=== PATIENT | male | born 1935 | race Caucasian/White ===

== ENCOUNTER 2018-02-07 21:27 | Emergency (ER) | payer MEDICARE ==
[2018-02-07] MEDS ORDERED: SODIUM CHLORIDE 0.9% 1,000 ML IV STA ×2 (21:51)
[2018-02-07] MEDS ORDERED: KETOROLAC 30 MG/ML 1 ML VIAL IVP STA (21:51)
--- NOTE | 2018-02-07 21:58 | ED ---
Abdominal Pain HPI - General Chief Complaint: Abdominal Pain Stated Complaint: Abd pain Time Seen by Provider: 02/07/18 21:41 Source: patient, family, RN notes reviewed Mode of arrival: ambulatory Limitations: no limitations - History of Present Illness Initial Comments: This is a 82-year-old male who presents with complaints of the onset of nausea and vomiting around 6 PM tonight. This is eating after crab that had been in his refrigerator for about 3 days. He complains of lower abdominal pain is 9/ 10 severity achy sharp pain nonradiating. He threw up around 6 times. He also does admit he drank several beers today earlier today. He has chronic constipation he denies diarrhea. He has no other complaints at this time he does feel somewhat weak and lightheaded with ambulation. MD Complaint: abdominal pain - Related Data Home Medications Medication Instructions Recorded Confirmed Multivitamin [Men's Multi-Vitamin] 1 tab PO DAILY 02/07/18 02/07/18 Previous Rx's Medication Instructions Recorded Ondansetron Odt [Zofran Odt] 4 mg PO Q8HR PRN #10 tab 02/08/18 Allergies Allergy/AdvReac Type Severity Reaction Status Date / Time Penicillins Allergy Unknown Verified 02/07/18 22:04 Review of Systems ROS Statement: Those systems with pertinent positive or pertinent negative responses have been documented in the HPI. ROS Other: All systems not noted in ROS Statement are negative. Past Medical History Past Medical History: No Reported History History of Any Multi-Drug Resistant Organisms: None Reported Past Surgical History: No Surgical Hx Reported Past Psychological History: No Psychological Hx Reported Smoking Status: Never smoker Past Alcohol Use History: Occasional Past Drug Use History: None Reported General Exam - General Exam Comments Initial Comments: This is a well-developed well-nourished awake alert oriented 3 male Limitations: no limitations General appearance: alert, in no apparent distress Head exam: Present: atraumatic, normocephalic, normal inspection Eye exam: Present: normal appearance, PERRL, EOMI. Absent: scleral icterus, conjunctival injection, periorbital swelling ENT exam: Present: mucous membranes dry Neck exam: Present: normal inspection. Absent: tenderness, meningismus, lymphadenopathy Respiratory exam: Present: normal lung sounds bilaterally. Absent: respiratory distress, wheezes, rales, rhonchi, stridor Cardiovascular Exam: Present: regular rate, normal rhythm, normal heart sounds. Absent: systolic murmur, diastolic murmur, rubs, gallop, clicks GI/Abdominal exam: Present: soft, tenderness (Mild suprapubic tenderness no guarding rebound masses or bruits), normal bowel sounds. Absent: distended, guarding, rebound, rigid Rectal exam: Present: deferred Extremities exam: Present: normal inspection, full ROM, normal capillary refill. Absent: tenderness, pedal edema, joint swelling, calf tenderness Back exam: Present: normal inspection Neurological exam: Present: alert, oriented X3, CN II-XII intact Psychiatric exam: Present: normal affect, normal mood Skin exam: Present: warm, dry, intact, normal color. Absent: rash Course Vital Signs 02/07/18 02/07/18 02/07/18 21:32 22:06 23:12 Temperature 97.7 F Pulse Rate 82 84 Respiratory 20 18 Rate Blood Pressure 202/116 171/69 162/87 O2 Sat by Pulse 98 99 Oximetry 02/08/18 00:00 Temperature Pulse Rate 81 Respiratory 18 Rate Blood Pressure 149/73 O2 Sat by Pulse 100 Oximetry Medical Decision Making - Medical Decision Making Reevaluation patient reveals he feels much improved no pain he feels much better after IV hydration. He will be discharged after 500 mL of fluid. The presentation is consistent with acute gastritis - Lab Data Result diagrams: 02/07/18 21:55 02/07/18 21:55 Lab Results 02/07/18 02/07/18 02/07/18 Range/Units 21:55 21:55 21:55 WBC 13.4 H (3.8-10.6) k/uL RBC 4.60 (4.30-5.90) m/uL Hgb 15.1 (13.0-17.5) gm/dL Hct 46.4 (39.0-53.0) % MCV 100.9 H (80.0-100.0) fL MCH 32.8 (25.0-35.0) pg MCHC 32.5 (31.0-37.0) g/dL RDW 12.6 (11.5-15.5) % Plt Count 248 (150-450) k/uL Neutrophils % 81 % Lymphocytes % 11 % Monocytes % 5 % Eosinophils % 2 % Basophils % 0 % Neutrophils # 10.9 H (1.3-7.7) k/uL Lymphocytes # 1.5 (1.0-4.8) k/uL Monocytes # 0.6 (0-1.0) k/uL Eosinophils # 0.3 (0-0.7) k/uL Basophils # 0.0 (0-0.2) k/uL Sodium 138 (137-145) mmol/L Potassium 4.4 (3.5-5.1) mmol/L Chloride 98 (98-107) mmol/L Carbon Dioxide 28 (22-30) mmol/L Anion Gap 12 mmol/L BUN 17 (9-20) mg/dL Creatinine 0.90 (0.66-1.25) mg/dL Est GFR (CKD-EPI)AfAm >90 (>60 ml/min/1.73 sqM) Est GFR (CKD-EPI)NonAf 78 (>60 ml/min/1.73 sqM) Glucose 122 H (74-99) mg/dL Plasma Lactic Acid Ishan (0.7-2.0) mmol/L Calcium 9.8 (8.4-10.2) mg/dL Total Bilirubin 0.4 (0.2-1.3) mg/dL AST 30 (17-59) U/L ALT 36 (21-72) U/L Alkaline Phosphatase 69 (38-126) U/L Total Creatine Kinase 93 (55-170) U/L CK-MB (CK-2) 2.1 (0.0-2.4) ng/mL CK-MB (CK-2) Rel Index 2.3 Troponin I <0.012 (0.000-0.034) ng/mL Total Protein 7.3 (6.3-8.2) g/dL Albumin 4.4 (3.5-5.0) g/dL Amylase 114 H (30-110) U/L Lipase 141 (23-300) U/L Urine Color Urine Appearance (Clear) Urine pH (5.0-8.0) Ur Specific [place] (1.001-1.035) Urine Protein (Negative) Urine Glucose (UA) (Negative) Urine Ketones (Negative) Urine Blood (Negative) Urine Nitrite (Negative) Urine Bilirubin (Negative) Urine Urobilinogen (<2.0) mg/dL Ur Leukocyte Esterase (Negative) Urine RBC (0-5) /hpf Urine WBC (0-5) /hpf Ur Squamous Epith Cells (0-4) /hpf Urine Bacteria (None) /hpf Hyaline Casts (0-2) /lpf Urine Mucus (None) /hpf 02/07/18 02/07/18 Range/Units 21:55 22:34 WBC (3.8-10.6) k/uL RBC (4.30-5.90) m/uL Hgb (13.0-17.5) gm/dL Hct (39.0-53.0) % MCV (80.0-100.0) fL MCH (25.0-35.0) pg MCHC (31.0-37.0) g/dL RDW (11.5-15.5) % Plt Count (150-450) k/uL Neutrophils % % Lymphocytes % % Monocytes % % Eosinophils % % Basophils % % Neutrophils # (1.3-7.7) k/uL Lymphocytes # (1.0-4.8) k/uL Monocytes # (0-1.0) k/uL Eosinophils # (0-0.7) k/uL Basophils # (0-0.2) k/uL Sodium (137-145) mmol/L Potassium (3.5-5.1) mmol/L Chloride (98-107) mmol/L Carbon Dioxide (22-30) mmol/L Anion Gap mmol/L BUN (9-20) mg/dL Creatinine (0.66-1.25) mg/dL Est GFR (CKD-EPI)AfAm (>60 ml/min/1.73 sqM) Est GFR (CKD-EPI)NonAf (>60 ml/min/1.73 sqM) Glucose (74-99) mg/dL Plasma Lactic Acid Ish[place] 1.5 (0.7-2.0) mmol/L Calcium (8.4-10.2) mg/dL Total Bilirubin (0.2-1.3) mg/dL AST (17-59) U/L ALT (21-72) U/L Alkaline Phosphatase (38-126) U/L Total Creatine Kinase (55-170) U/L CK-MB (CK-2) (0.0-2.4) ng/mL CK-MB (CK-2) Rel Index Troponin I (0.000-0.034) ng/mL Total Protein (6.3-8.2) g/dL Albumin (3.5-5.0) g/dL Amylase (30-110) U/L Lipase (23-300) U/L Urine Color Light Yellow Urine Appearance Clear (Clear) Urine pH 7.5 (5.0-8.0) Ur Specific [place] 1.010 (1.001-1.035) Urine Protein Trace H (Negative) Urine Glucose (UA) Negative (Negative) Urine Ketones 1+ H (Negative) Urine Blood Small H (Negative) Urine Nitrite Negative (Negative) Urine Bilirubin Negative (Negative) Urine Urobilinogen <2.0 (<2.0) mg/dL Ur Leukocyte Esterase Small H (Negative) Urine RBC 8 H (0-5) /hpf Urine WBC 4 (0-5) /hpf Ur Squamous Epith Cells <1 (0-4) /hpf Urine Bacteria Rare H (None) /hpf Hyaline Casts 3 H (0-2) /lpf Urine Mucus Rare H (None) /hpf - Radiology Data Interpreted by me: I did review the imaging and report no acute findings. Disposition Clinical Impression: Acute gastritis, Food poisoning, Dehydration, Spasm of bowel Disposition: HOME SELF-CARE Condition: Good Instructions: Food Poisoning (ED), Acute Abdominal Pain (ED), Irritable Bowel Syndrome (ED), Dehydration (ED) Prescriptions: Ondansetron Odt [Zofran Odt] 4 mg PO Q8HR PRN #10 tab PRN Reason: Nausea Is patient prescribed a controlled substance at d/c from ED?: No Referrals: None,Stated [Primary Care Provider] - 1-2 days
[2018-02-07 22:15] LABS: Basophils % (A) 0 %; Eosinophils # (A) 0.3 k/uL (0-0.7); Eosinophils % (A) 2 %; HCT 46.4 % (39.0-53.0); HGB 15.1 gm/dL (13.0-17.5); Lymphocytes # (A) 1.5 k/uL (1.0-4.8); Lymphocytes % (A) 11 %; MCH 32.8 pg (25.0-35.0); MCHC 32.5 g/dL (31.0-37.0); MCV 100.9 fL (80.0-100.0); Mean Platelet Volume 6.7; Monocytes # (A) 0.6 k/uL (0-1.0); Monocytes % (A) 5 %; Neutrophils # (A) 10.9 k/uL (1.3-7.7); Neutrophils % (A) 81 %; Platelet Count 248 k/uL (150-450); RDW 12.6 % (11.5-15.5); WBC 13.4 k/uL (3.8-10.6)
[2018-02-07 22:30] LABS: Creatine Kinase 93 U/L (55-170)
[2018-02-07 22:31] LABS: ALT 36 U/L (21-72); AST 30 U/L (17-59); Albumin 4.4 g/dL (3.5-5.0); Alkaline Phosphatase 69 U/L (38-126); Amylase 114 U/L (30-110); Anion Gap 12 mmol/L; Blood Urea Nitrogen 17 mg/dL (9-20); Calcium 9.8 mg/dL (8.4-10.2); Carbon Dioxide 28 mmol/L (22-30); Chloride 98 mmol/L (98-107); Glucose 122 mg/dL (74-99); Lipase 141 U/L (23-300); Potassium 4.4 mmol/L (3.5-5.1); Sodium 138 mmol/L (137-145); Total Bilirubin 0.4 mg/dL (0.2-1.3); Total Protein 7.3 g/dL (6.3-8.2)
--- NOTE | 2018-02-07 22:33 | XR ---
EXAMINATION TYPE: XR chest 2V DATE OF EXAM: 02/07/2018 COMPARISON: NONE HISTORY: Vomiting abdominal pain TECHNIQUE: Frontal and lateral views of the chest are obtained. FINDINGS: There is no heart failure nor confluent pneumonic infiltrate. Heart size is normal. Costop hrenic angles are clear. Bony thorax is intact. IMPRESSION: No active cardiopulmonary disease. Normal heart.
--- NOTE | 2018-02-07 22:34 | XR ---
EXAMINATION TYPE: XR abdomen 2V DATE OF EXAM: 02/07/2018 COMPARISON: NONE HISTORY: Abdominal pain TECHNIQUE: 3 views FINDINGS: There is no sign of intestinal obstruction or pneumoperitoneum. There is 2 cm calcification over the left upper quadrant. Fecal pattern is normal. There is no sign of a mass. IMPRESSION: Nonacute abdomen. Possible large left renal calculus.
[2018-02-07 22:44] LABS: Creatine Kinase MB 2.1 ng/mL (0.0-2.4); Troponin I <0.012 ng/mL (0.000-0.034)
[2018-02-07 23:00] LABS: Appearance,Urine Clear (Clear); Bacteria,Urine Rare /hpf; Bilirubin,Urine Negative (Negative); Blood,Urine Small (Negative); Color,Urine Light Yellow; Glucose,Urine (UA) Negative (Negative); Hyaline Casts,Urine 3 /lpf (0-2); Ketones,Urine 1+ (Negative); Leukocyte Esterase,Urine Small (Negative); Mucus,Urine Rare /hpf; Nitrite,Urine Negative (Negative); PH, Urine 7.5 (5.0-8.0); Protein,Urine Trace (Negative); RBC,Urine 8 /hpf (0-5); Squamous Epithelial Cell,Urine <1 /hpf (0-4); Urobilinogen,Urine <2.0 mg/dL (<2.0); WBC,Urine 4 /hpf (0-5)
[2018-02-07 23:12] VITALS: RESP 18
[2018-02-08 00:03] VITALS: BP 149/73; PULSE 81
[2018-02-08] MEDS ORDERED: SODIUM CHLORIDE 0.9% 500 ML IV STA (00:06)
[2018-02-08 01:01] VITALS: TEMP 98.5
== END 2018-02-08 01:00 | disposition home or self-care (01) ==
LOC: EC 21:27
DX: T61.8X1A Toxic effect of other seafood, accidental (unintentional), initial encounter (principal); E86.0 Dehydration; K29.00 Acute gastritis without bleeding; K63.89 Other specified diseases of intestine; Z88.0 Allergy status to penicillin
CPT/HCPCS: 36415; 80053; 82150; 82550; 82553; 83605; 83690; 84484; 85025; 81001; 71046; 74019; 99284; 96374; 96361 ×3; J1885

== ENCOUNTER 2018-02-10 11:23 | Emergency (ER) | payer MEDICARE ==
[2018-02-10 11:32] VITALS: BP 168/100; PULSE 86; RESP 18; TEMP 98.1
[2018-02-10] MEDS ORDERED: SODIUM CHLORIDE 0.9% 1,000 ML IV STA (12:57)
--- NOTE | 2018-02-10 13:29 | ED ---
General Adult HPI - General Chief complaint: Abdominal Pain Stated complaint: Abd Pain, Constipated Time Seen by Provider: 02/10/18 12:35 Source: patient, RN notes reviewed Mode of arrival: ambulatory Limitations: no limitations - History of Present Illness Initial comments: Patient is an 82-year-old male presented to the emergency room today with a chief complaint of abdominal pain and feeling constipated. Patient does admit that he was at urgent care had an x-ray obtained was advised coming to emergency room for further evaluation. Patient states began having pain 3 days ago.Please use medication as discussed. Please follow-up with family doctor in the next 2 days of symptoms have not improved. Please return to emergency room if the symptoms increase or worsen or for any other concerns. Patient states has not noticed that he is passing any flatulence. Patient states is not the attention of this. He does admit that his abdomen is distended. Describes cramping type pain in the lower abdomen that comes and goes. He denies any other complaints or symptoms. - Related Data Home Medications Medication Instructions Recorded Confirmed Multivitamin [Men's Multi-Vitamin] 1 tab PO DAILY 02/07/18 02/10/18 Previous Rx's Medication Instructions Recorded Ondansetron Odt [Zofran Odt] 4 mg PO Q8HR PRN #10 tab 02/08/18 Allergies Allergy/AdvReac Type Severity Reaction Status Date / Time No Known Allergies Allergy Verified 02/10/18 12:39 Review of Systems ROS Statement: Those systems with pertinent positive or pertinent negative responses have been documented in the HPI. ROS Other: All systems not noted in ROS Statement are negative. Past Medical History Past Medical History: No Reported History History of Any Multi-Drug Resistant Organisms: None Reported Past Surgical History: No Surgical Hx Reported Past Psychological History: No Psychological Hx Reported Smoking Status: Never smoker Past Alcohol Use History: Daily, Heavy Past Drug Use History: None Reported General Exam - General Exam Comments Initial Comments: General: The patient is awake and alert, in no distress, and does not appear acutely ill. Eye: Pupils are equal, round and reactive to light, extra-ocular movements are intact. No nystagmus. There is normal conjunctiva bilaterally. No signs of icterus. Ears, nose, mouth and throat: There are moist mucous membranes and no oral lesions. Neck: The neck is supple, there is no tenderness or JVD. Cardiovascular: There is a regular rate and rhythm. No murmur, rub or gallop is appreciated. Respiratory: Lungs are clear to auscultation, respirations are non-labored, breath sounds are equal. No wheezes, stridor, rales, or rhonchi. Gastrointestinal: Abdomen mildly firm. Mild distention. Mildly tender lower quadrant. No rebound tenderness. No guarding. Musculoskeletal: Normal ROM, no tenderness. Strength 5/5. Sensation intact. Pulses equal bilaterally 2+. Neurological: A&O x 3. CN II-XII intact, There are no obvious motor or sensory deficits. Coordination appears grossly intact. Speech is normal. Skin: Skin is warm and dry and no rashes or lesions are noted. Psychiatric: Cooperative, appropriate mood & affect, normal judgment. Limitations: no limitations Course Vital Signs 02/10/18 11:29 Temperature 98.1 F Pulse Rate 86 Respiratory 18 Rate Blood Pressure 168/100 O2 Sat by Pulse 98 Oximetry Medical Decision Making - Medical Decision Making Patient was seen here the emergency room by myself. Discussed with patient about obtaining lab work and possibly CAT scan due to distended abdomen in pain with no bowel movement. Discussed with patient that we would check outpatient x -ray but start by obtaining blood work. Patient been no indication that he was not on Saturday for any testing. When nursing went to room to start an IV and obtain blood. Patient was not there. Patient eloped. Disposition Clinical Impression: Abdominal pain Disposition: Left Against Medical Advice Condition: Undetermined Referrals: None,Stated [Primary Care Provider] - 1-2 days Time of Disposition: 13:33 (Patient eloped)
== END 2018-02-10 13:32 | disposition left against medical advice (07) ==
LOC: EC 11:23
DX: R10.30 Lower abdominal pain, unspecified (principal)
CPT/HCPCS: 99283